=== PATIENT | female | born 1935 | race African-American/Black ===

== ENCOUNTER 2021-10-16 16:11 | Emergency (ER) | payer MEDICARE, OTHER, SELFPAY ==
--- NOTE | ~2021-10-16 | CT_ITS ---
EXAMINATION: CT ANGIOGRAM HEAD CT ANGIOGRAM NECK CLINICAL INFORMATION: Right thigh partial vision loss. COMPARISON: None available. TECHNIQUE: Initial noncontrast primer assembler imaging of the head and neck was performed. Noncontrast head CT was also performed. Test bolus sequences followed by intravenous administration 70 mL of Omnipaque 350. Helical imaging was performed in the axial plane from the aortic arch to the skull vertex. Delayed postcontrast imaging of the head was also performed. The data was processed at the electronics engineering technologist's workstation for generation of MIP sequences. Angled MIPs and volume rendered reformatted images were also generated at an offline 3D workstation. Stenoses are assessed in accordance with NASCET criteria unless otherwise indicated. This CT examination was performed using dose optimization techniques as appropriate, variously including the following: *Automated exposure control. *Adjustment of mA and/or kV according to patient size (this includes techniques or standardized protocols for targeted exams where dose is matched to indication/reason for exam; i.e. extremities or head). *Use of iterative reconstruction technique. DLP: 2358 mGy-cm FINDINGS: CT Head: There is no evidence of acute intracranial hemorrhage or edematous territorial infarction. Scattered hypoattenuation in the periventricular and deep white matter are consistent with moderate microangiopathy. Hensley-white matter differentiation is preserved. Proportional prominence of the ventricles and sulcal spaces. No evidence for obstructive hydrocephalus. The sella turcica is partially expanded with flattening of the pituitary gland. No abnormal mass effect or midline shift. No extra-axial fluid collections. No pathologic intra-axial enhancement or regional oligemia. No acute soft tissue or osseous abnormalities. Mild mucosal thickening of the paranasal sinuses. The mastoid air cells and middle ear cavities are clear. Bilateral lens extractions. Left-sided glaucoma device in place. The patient is edentulous. CT Neck: There is a 0.8 cm hypoattenuating nodule in the right thyroid lobe (no follow-up imaging recommended). The remaining cervical soft tissues are within normal limits. Instrumented anterior fusion of C5-C6. Straightening of the normal cervical lordosis. Advanced degenerative arthropathy of the atlantodental articulation. Extensive bridging anterior osteophytosis from C2-T4. There is partial ossification of the posterior longitudinal ligament from the levels of C3-T1. CT Upper Chest: Advanced degenerative arthropathy of the shoulder joints. Advanced degeneration of the acromioclavicular joint2. Irregular ossification of the left biceps muscle, potentially representing heterotopic ossification. The visualized lung apices and upper mediastinum are within normal limits. Neck CTA: Aortic Arch: Normal contour and caliber with moderate calcific atherosclerotic disease. Two vessel branching pattern of the arch with left common carotid artery arising from the brachiocephalic trunk. Great Vessel Origins: No significant stenosis of the branch origins. Right Common Carotid Artery: No focal stenosis or occlusion. Cervical Right Internal Carotid Artery: Mild calcific atherosclerotic disease of the carotid bulb and proximal internal carotid artery without flow-limiting stenosis. Left Common Carotid Artery: No focal stenosis or occlusion. Cervical Left Internal Carotid Artery: Mixed lipid rich and calcific atherosclerotic disease of the carotid bulb and proximal internal carotid artery causing less than 50% stenosis. Cervical Right Vertebral Artery: No focal stenosis or occlusion. Cervical Left Vertebral Artery: Dominant. No focal stenosis or occlusion. Brain CTA: Intracranial Internal Carotid Arteries: Calcific atherosclerotic disease of the intracranial internal carotid arteries without occlusion or flow-limiting stenosis. Normal opacification of the proximal segments of the ophthalmic arteries. Right Anterior Cerebral Artery: Normal A1 segment. Normal opacification of the distal TULIO segments. Left Anterior Cerebral Artery: Normal A1 segment. Normal opacification of the distal TULIO segments. Anterior Communicating Artery: Normal. Right Middle Cerebral Artery: Normal M1 segment of the MCA without focal stenosis or occlusion. Normal arborization of the distal segments. Left Middle Cerebral Artery: Normal M1 segment of the MCA without focal stenosis or occlusion. Normal arborization of the distal segments. Right Vertebral Artery: Normal V4 segment. The posterior inferior cerebellar artery is not well opacified; however, there is no CT evidence of acute occlusion. Left Vertebral Artery: Normal V4 segment. The posterior inferior cerebellar artery is not well opacified; however, there is no CT evidence of acute occlusion. Basilar Artery: Normal without focal stenosis or occlusion. Normal appearance of the proximal superior cerebellar arteries. Right Posterior Cerebral Artery: The P1 segment is mildly diminutive. origin of the MOTH PROOFER with robust opacification of the posterior communicating artery. Normal opacification of the distal MOTH PROOFER segments. Left Posterior Cerebral Artery: The P1 segment is diminutive. origin of the MOTH PROOFER with robust opacification of the posterior communicating artery. Normal opacification of the distal MOTH PROOFER segments. Normal opacification of the superior sagittal, straight, transverse, and sigmoid sinuses. CT/CT angio head neck IMPRESSION: 1. No evidence of acute intracranial hemorrhage or edematous territorial infarction. Moderate underlying microangiopathy and generalized cerebral volume loss. 2. CTA of the head and neck without proximal occlusion or flow-limiting stenosis. 3. Advanced multilevel degenerative spondyloarthropathy of the cervical spine. Prominent bridging anterior osteophytosis of the cervical spine. Moderate opacification of the posterior longitudinal ligament from C3-T1. 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 Findings may represent sequela of underlying diffuse idiopathic skeletal hyperostosis (DISH).
[2021-10-16 16:44] VITALS: BP 187/71; PULSE 18; RESP 18; TEMP 36.9; O2SAT 98; BMI 39.8
--- NOTE | 2021-10-16 16:52 | ECG_ITS ---
Test Reason : SHORTNESS OF BREATH Blood Pressure : / mmHG Vent. Rate : 069 BPM Atrial Rate : 069 BPM P-R Int : 200 ms QRS Dur : 084 ms QT Int : 410 ms P-R-T Axes : 031 -06 039 degrees QTc Int : 439 ms Normal sinus rhythm Normal ECG No previous ECGs available Referred By: Generic ED Physician Electronically Signed By:ARTEMIO YBARRA MD
[2021-10-16 18:01] LABS: MANUAL DIFF FLAG NO
[2021-10-16 18:17] LABS: Anion Gap 13 (12-20); Blood Urea Nitrogen 10 mg/dL (9-16); Calcium 9.5 mg/dL (8.4-10.2); Carbon Dioxide 32 mmol/L (22-29); Chloride 101 mmol/L (96-108); Estimated Glomerular Filt Rate 59; Glucose Random 92 mg/dL (60-115); Potassium 4.7 mmol/L (3.3-5.1); Sodium 141 mmol/L (135-145)
[2021-10-16 18:20] LABS: COVID-19 Test Negative (Negative); IDNOW Serial# 55D5AD1C
[2021-10-16 18:23] LABS: Basophils Percent Auto 0.4 % (0-2); Eosinophils Absolute Auto 0.1 X10*3/uL (0.0-0.4); Eosinophils Percent Auto 1.1 % (0-4); Hematocrit 40.4 % (37.0-47.0); Hemoglobin 12.3 g/dl (12.0-16.0); Imm Gran Abs Auto 0.04 X10*3/uL (0.00-0.03); Imm Gran Pct Auto 0.5 % (0.0-0.4); Lymphocytes Absolute Auto 2.1 X10*3/uL (1.2-4.9); Lymphocytes Percent Auto 26.5 % (20-40); Mean Corpuscular HGB Conc 30.4 g/dl (31.0-35.0); Mean Corpuscular Hemoglobin 26.9 pg (27.0-33.0); Mean Corpuscular Volume 88.2 fL (80.0-98.0); Mean Platelet Volume 9.2 fL (9.4-12.3); Monocytes Absolute Auto 0.7 X10*3/uL (0.1-1.2); Monocytes Percent Auto 8.9 % (2-11); Neutrophils Percent Auto 62.6 % (45-73); Platelet Count 267 X10*3/uL (160-400); Red Blood Count 4.58 X10*6/uL (4.20-5.50); Red Cell Distribution Width 15.2 % (11.0-16.0)
[2021-10-16 21:28] VITALS: BP 162/75; PULSE 70; RESP 16; TEMP 37; O2SAT 96
--- NOTE | 2021-10-16 22:00 | ED_ITS ---
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 No scotomas no double vision no pain in the eye been checked with eye doctors multiple times without any significant findings today she saw the new eye doctor who referred her to go to hospital to rule out possible cva Related Data Allergies Allergy/AdvReac Type Severity Reaction Status Date / Time No Known Allergies Allergy Verified 10/16/21 21:22 Review of Systems Review of Systems: Yes all other systems are reviewed and are negative [facility] [place] Past Medical History Attestation statement: The following information was validated with the patient. Social History Social History Advance Directives: No Advance Directives Information Provided: No Physical Exam Vital Signs: Vital Signs: Last Vital Signs Temp 98.6 F 10/16/21 21:28 Pulse 65 10/16/21 23:39 Resp 18 10/16/21 23:39 BP 165/89 H 10/16/21 23:39 Pulse Ox 98 10/16/21 23:39 BMI result Body Mass Index 39.8 Appearance: Alert. Oriented X3. No acute distress. Eyes: Right eye: Right eye pupil NS,NR No Nystagmus fundus exam: No p apilledema renal arteries normal no posterior chamber abnormality EOMI . left eye opacified legally blind visual field from the right eye is normal ENT: Pharynx normal. Oral Mucosa moist Neck: Normal inspection. Neck supple. CVS: Normal heart rate and rhythm. Pulses normal. Respiratory: No respiratory distress. Equal air entry bilateral, no wheezing/rales/rhonchi Abdomen: Soft and nontender. Bowel sounds are present, no mass palpable, Skin: Skin warm and dry. Normal skin color. Normal skin turgor. Extremities: No lower extremity edema. No calf tenderness Neuro: Oriented X 3. No motor deficit. No sensory deficit.No cerebellar signs , cranial nerves II-XII intact MDM - Eye Problem MDM Narrative Medical decision making narrative: Patient's CTA negative for any stroke or occlusion clinically patient has refractory error discharge patient home advised to follow with ophthalmology Lab Data Attestation: I reviewed the patient's lab results. Result diagrams: 10/16/21 17:41 10/16/21 17:41 Labs: Lab Results 10/16/21 10/16/21 10/16/21 Range/Units 17:41 17:41 17:41 WBC 8.0 (4.8-10.8) X10*3/uL RBC 4.58 (4.20-5.50) X10*6/uL Hgb 12.3 (12.0-16.0) g/dl Hct 40.4 (37.0-47.0) % MCV 88.2 (80.0-98.0) fL MCH 26.9 L (27.0-33.0) pg MCHC 30.4 L (31.0-35.0) g/dl RDW 15.2 (11.0-16.0) % Plt Count 267 (160-400) X10*3/uL MPV 9.2 L (9.4-12.3) fL Immature Gran % (Auto) 0.5 H (0.0-0.4) % Neut % (Auto) 62.6 (45-73) % Lymph % (Auto) 26.5 (20-40) % Converse % (Auto) 8.9 (2-11) % Eos % (Auto) 1.1 (0-4) % Baso % (Auto) 0.4 (0-2) % Lymph # (Auto) 2.1 (1.2-4.9) X10*3/uL Converse # (Auto) 0.7 (0.1-1.2) X10*3/uL Eos # (Auto) 0.1 (0.0-0.4) X10*3/uL Baso # (Auto) 0.0 (0.0-0.2) X10*3/uL Abs Immat Gran (auto) 0.04 H (0.00-0.03) X10*3/uL Absolute Neuts (auto) 5.0 (2.0-8.3) x10*3/uL Absolute Nucleated RBC 0.000 (0.0-0.012) X10*3/uL Nucleated RBC % (auto) 0.0 (0.0-0.2) /100WBC Sodium 141 (135-145) mmol/L Potassium 4.7 (3.3-5.1) mmol/L Chloride 101 (96-108) mmol/L Carbon Dioxide 32 H (22-29) mmol/L Anion Gap 13 (12-20) BUN 10 (9-16) mg/dL Creatinine 0.90 (0.5-1.4) mg/dL Estim Creat Clear Calc 53.0 Estimated GFR 59 Random Glucose 92 (60-115) mg/dL Calcium 9.5 (8.4-10.2) mg/dL COVID-19 (JESSI) Negative (Negative) COVID-19 Clin Com See Note Discharge Plan Discharge Clinical Impression: Refraction error Patient Disposition: Home, Self-Care Instructions: Refractive Errors of the Eye (ED) Additional Instructions: Follow-up with your network security administrator for further examination Referrals: Obie Mcgregor [Physician] - 2 weeks
[2021-10-16 23:39] VITALS: BP 165/89; PULSE 65; RESP 18; O2SAT 98
[2021-10-17] MEDS: iohexoL 350 MG/ML 100 ML INFUS..BTL IV (00:27)
== END 2021-10-17 01:44 | disposition home or self-care (01) ==
PROVIDERS: Emergency Provider Internal Medicine
DX: H52.7 Unspecified disorder of refraction (principal); H54.62 Unqualified visual loss, left eye, normal vision right eye; Z20.822 Contact with and (suspected) exposure to COVID-19
CPT/HCPCS: 70496; 70498; 80048; 85025; 87635; 93005; 99284; Q9967